=== PATIENT | female | born 1990 | race American Indian/Alaskan Native ===

== ENCOUNTER 2017-08-19 18:48 | Emergency (ER) | payer OTHER, BC ==
[2017-08-19 18:57] VITALS: BP 117/65
[2017-08-19 20:12] LABS: HCG Qualitative,Urine Negative (Negative)
== END 2017-08-19 22:00 | disposition left against medical advice (07) ==
LOC: ED 18:48
DX: M54.2 Cervicalgia (principal); Z53.21 Procedure and treatment not carried out due to patient leaving prior to being seen by health care provider
CPT/HCPCS: 81025

== ENCOUNTER 2020-03-15 20:31 | Emergency (ER) | payer SELFPAY ==
[2020-03-15 20:38] VITALS: BP 112/72
--- NOTE | 2020-03-15 21:39 | Emergency Department Report ---
Chief Complaint: Extremity Injury, Lower Stated Complaint: PAIN IN LEFT THIGH AREA Time Seen by Provider: 03/15/20 21:30 - HPI History of Present Illness: Pt is a 30 y/o aaf who presents for left thigh pain x 2 days , pt denies fall or injury, there is no abrasion , no laceration , no swelling, no numbness no paralysis, pain is described as 4/10 sharp anterior thigh. rom intact and unrestricted. pt ambulated into ed tonight, with steady gait. - Exam Vital Signs: Vital Signs 03/15/20 20:36 Temperature 98.9 F Pulse Rate 94 H Respiratory 18 Rate Blood Pressure 112/72 O2 Sat by Pulse 99 Oximetry MSE screening note: Focused history and physical exam performed. ROM intact and unrestricted, distal pulses intact, there is posterior calt or thigh tenderness, neg homans sign, no swelling, this is most likely musculoskeletal strain. pt does not have and emergency medical condition and has decided to seek treat with pcp versus emergency department. Due to findings the following was ordered: pt defers tx to pcp [facility]. ED Disposition for MSE Clinical Impression: Musculoskeletal strain Disposition: Z- MED SCREENING EXAM-LEFT Is pt being admited?: No Does the pt Need Aspirin: No Condition: Stable Additional Instructions: follow up with your pcp tomorrow as planned , Time of Disposition: 21:40
== END 2020-03-16 02:00 | disposition left against medical advice (07) ==
LOC: ED 20:31
DX: M79.652 Pain in left thigh (principal); Z53.21 Procedure and treatment not carried out due to patient leaving prior to being seen by health care provider

== ENCOUNTER 2020-06-20 16:29 | Emergency (ER) | payer OTHER | END 2020-06-20 18:45 | disposition left against medical advice (07) | LOC: ED 16:29 | DX: Z53.21 Procedure and treatment not carried out due to patient leaving prior to being seen by health care provider (principal) ==

== ENCOUNTER 2020-06-27 12:11 | Emergency (ER) | payer SELFPAY | END 2020-06-27 14:00 | disposition left against medical advice (07) | LOC: ED 12:11 | DX: Z00.8 Encounter for other general examination (principal); Z53.21 Procedure and treatment not carried out due to patient leaving prior to being seen by health care provider ==